=== PATIENT | female | born 1990 | race Caucasian/White ===

== ENCOUNTER 2017-02-14 01:55 | Emergency (ER) | payer SELFPAY | END 2017-02-14 02:20 | disposition left against medical advice (07) | LOC: ER 01:59 | DX: Z53.21 Procedure and treatment not carried out due to patient leaving prior to being seen by health care provider (principal) ==

== ENCOUNTER 2017-02-21 12:36 | Emergency (ER) | payer SELFPAY ==
[~2017-02-21] VITALS: Ht 165.1 cm; Wt 63.5 kg
--- NOTE | 2017-02-21 12:40 | NUR ---
PRESENTS SELF TO ED DT FACE AND NOSE OPEN WOUND, WOUNDS WITH SLIGHT DISCHARGE; PATIENT IS AFEBRILE. PATIENT ALSO CO RIGHT FOOT PAIN SP INJURY 02/01/17. PT'S VSS.
--- NOTE | 2017-02-21 12:57 | NUR ---
IWONA KHAN AT BEDSIDE
[2017-02-21 13:43] VITALS: BP 122/75
--- NOTE | 2017-02-21 13:43 | NUR ---
Patient discharged to home in stable condition. Written and verbal after care instructions given. Patient verbalizes understanding of instruction.
== END 2017-02-21 13:44 | disposition home or self-care (01) ==
LOC: ER 12:37
DX: L01.00 Impetigo, unspecified (principal); F15.10 Other stimulant abuse, uncomplicated
CPT/HCPCS: 99283; A4606; Z7610

== ENCOUNTER 2019-02-24 15:19 | Emergency (ER) | payer SELFPAY | END 2019-02-24 15:45 | disposition home or self-care (01) | LOC: ER 15:27 | DX: Z53.21 Procedure and treatment not carried out due to patient leaving prior to being seen by health care provider (principal) ==

== ENCOUNTER → 2019-02-24 | Emergency (ER) | payer SELFPAY ==
[~2019-02-24] VITALS: Ht 162.6 cm; Wt 59.0 kg
[~2019-02-24] MED LIST: ACETAMINOPHEN 325 MG TABLET PO ONE; ACETAMINOPHEN ES 500 MG TABLET ONE; LIDOCAINE 1%-EPI 1:100,000 20 ML VIAL ONE; LIDOCAINE 1%-EPI 1:100,000 20 ML VIAL TP ONE
[2019-02-24 19:15] VITALS: BP 125/87
== END | disposition home or self-care (01) ==
LOC: ER 17:17
DX: L02.413 Cutaneous abscess of right upper limb (principal)
CPT/HCPCS: 10060; 99283; J3490